=== PATIENT | female | born 1960 | race Caucasian/White ===

== ENCOUNTER → 2017-03-01 14:05 | Outpatient (CLI) | payer OTHER ==
[2009-11-28 07:47] VITALS: BMI 30.2
== END | disposition home or self-care (01) ==
LOC: D.MAMMO 08:00
DX: Z12.31 Encounter for screening mammogram for malignant neoplasm of breast (principal)

== ENCOUNTER 2017-03-12 14:14 | Emergency (ER) | payer OTHER ==
[2009-11-28 07:47] VITALS: BMI 30.2
== END 2017-03-12 16:42 | disposition home or self-care (01) ==
LOC: D.ER 14:14
DX: S81.011A Laceration without foreign body, right knee, initial encounter (principal); W01.0XXA Fall on same level from slipping, tripping and stumbling without subsequent striking against object, initial encounter; Y93.89 Activity, other specified; Y92.028 Other place in mobile home as the place of occurrence of the external cause; K21.9 Gastro-esophageal reflux disease without esophagitis; F17.200 Nicotine dependence, unspecified, uncomplicated

== ENCOUNTER → 2018-03-14 16:35 | Outpatient (CLI) | payer OTHER ==
[2009-11-28 07:47] VITALS: BMI 30.2
== END | disposition home or self-care (01) ==
LOC: D.MAMMO 08:00
DX: Z12.31 Encounter for screening mammogram for malignant neoplasm of breast (principal)

== ENCOUNTER → 2018-03-22 17:54 | Outpatient (CLI) | payer OTHER ==
[2009-11-28 07:47] VITALS: BMI 30.2
== END | disposition home or self-care (01) ==
LOC: D.MAMMO 09:00
DX: R92.8 Other abnormal and inconclusive findings on diagnostic imaging of breast (principal)

== ENCOUNTER 2019-03-29 09:00 | Outpatient (CLI) | payer OTHER ==
[2009-11-28 07:47] VITALS: BMI 30.2
== END 2019-03-29 10:00 | disposition home or self-care (01) ==
LOC: D.MAMMO 09:00
PROVIDERS: ATTEND Family Medicine
DX: Z12.31 Encounter for screening mammogram for malignant neoplasm of breast (principal)

== ENCOUNTER 2020-10-07 08:30 | Outpatient (CLI) | payer OTHER ==
[2009-11-28 07:47] VITALS: BMI 30.2
== END 2020-10-07 23:59 | disposition home or self-care (01) ==
LOC: D.MAMMO 08:30
PROVIDERS: ATTEND Family Medicine
DX: Z12.31 Encounter for screening mammogram for malignant neoplasm of breast (principal)